=== PATIENT | male | born 2000 | race African-American/Black ===

== ENCOUNTER 2018-07-23 22:47 | Emergency (ER) | payer SELFPAY ==
[2018-07-23 22:52] VITALS: BP 143/72; PULSE 96; RESP 16; TEMP 37.7
--- NOTE | 2018-07-23 23:07 | W.ED.GENAD ---
Discharge Plan Disposition Patient Disposition: HOME Condition: Stable Discharge Details Chief Complaint: Orthopedic Clinical Impression: Coccyx contusion, Infected pilonidal cyst Primary Care Provider: Brady Amaya ED Provider: Marie Zamarripa Home Meds and New Rx's Prescriptions: New clindamycin HCl 150 mg capsule 450 mg PO TID 7 Days Qty: 63 RF: 0 ibuprofen 600 mg tablet 600 mg PO Q6H PRN (Reason: pain) Qty: 20 RF: 0 No Action melatonin 3 MG tablet 3 tab PO HS Qty: 90 RF: 3 mupirocin 22 GM ointment 1 monica Topical TID Qty: 22 RF: 0 Discharge Instructions Instructions: Pilonidal Cyst (GEN), Contusion in Adults (ED) Additional Instructions: You did not have a fracture of the your tailbone today based on x-ray results. You seem to be developing an infection in your tailbone region called a infected pilonidal cyst. This can develop into a pilonidal abscess but there was no obvious abscess noted on your exam today. Apply warm compresses to the affected area several times daily for 20 minutes at a time. Take the antibiotics until finished. Alternate Tylenol and Motrin as needed and directed for pain. Follow-up with your primary care doctor in 1 week for reevaluation and for referral to surgery if you need incision and drainage or excision of a pilonidal cyst or abscess. Surgery clinic number for Dr. Canada is [phone]. Return to the emergency department with any worsening or new concerning symptoms. Referrals: Payton Canada MD [ [facility]FF [facility]YSICIAN] - (Follow up with surgery clinic as directed if symptoms persist or worsen at [phone]) Discharge Data Discharge Physician: Marie Zamarripa Medical Decision Making MDM Narrative Medical decision making narrative: 17-year-old male who presents with coccyx pain after a fall onto his coccyx 6 days ago after his girlfriend fell onto him on the floor hitting his coccyx. He states the pain has been worsening. He denies known fever or cauda equina symptoms. He has not taken anything for pain. Temp 99.9. Blood pressure mildly elevated at 143/72. Heart rate 96. Patient appears nontoxic. Patient was able to easily ambulate around the room. Patient has what appears to be likely an infected pilonidal cyst. I am not seeing an obvious abscess. I performed a bedside ultrasound and did not see an obvious fluid collection consistent with an abscess. It is possible that patient has tenderness and erythema which may be ecchymosis from blunt injury, but considering the area of pain, and patient has a history of hidradenitis suprapatella with history of bilateral groin abscesses, I suspect this is more likely an infection. Will give a dose of Motrin and send for a coccyx x-ray. 0030 --x-ray negative for fracture. Patient feels slightly better. I discussed with patient that there does not appear to be an acute indication for incision and drainage at this time as there is no obvious abscess upon my examination. I did explain that this can change, and would require evaluation by a primary care doctor or surgery for incision and drainage and possibly excision. He was instructed to use warm compresses several times daily. Will give a dose of clindamycin here and prescription for home. Patient instructed to return immediately to the emergency department with any concerning symptoms. HPI - General Adult General Mode of arrival: ambulatory. Date/Time Provider Initiated Documentation: 07/23/18 23:07. Limitations to Documentation: no limitations. Information obtained by: patient. HPI Narrative: Patient is a 17-year-old male presents with tailbone pain after fall onto his tailbone 6 days ago. Patient states he has been applying ice with some relief. He has not taken any medication for pain. Patient states he came to the ED tonight because his girlfriend's mother stated that he could have internal bleeding. Patient denies any known fever, chest pain, shortness of breath, abdominal pain, dizziness, urinary symptoms, urinary or fecal incontinence, saddle anesthesia, leg weakness or numbness. He states he has been eating and drinking normally. Related Data Previous Rx's Medication Instructions Recorded clindamycin HCl 450 mg PO TID 7 Days #63 cap 07/24/18 ibuprofen 600 mg PO Q6H PRN #20 tab 07/24/18 Allergies Allergy/AdvReac Type Severity Reaction Status Date / Time lactose AdvReac Cramping Unverified 04/18/18 20:37 General Stated Complaint: Orthopedic TIRSO: 4 Review of Systems Review of Systems All systems reviewed & are unremarkable except as noted in HPI and below Constitutional Denies chills, Denies excessive sweating, Denies fatigue, Denies fever(s), Denies weakness and Denies weight loss Eyes Patient Reports system reviewed and no additional complaints, except as docu and Denies blurry vision ENT Denies vertigo, Denies dizziness, Denies otalgia, Denies nasal congestion, Denies sore throat and Denies throat swelling Cardiovascular Denies chest pain, Denies syncope, Denies rapid heart rate and Denies dyspnea Respiratory Denies dyspnea Gastrointestinal Denies abdominal pain, Denies diarrhea and Denies vomiting Genitourinary Denies hematuria, Denies dysuria and Denies flank pain Musculoskeletal Reports back pain (coccyx), Denies joint swelling and Denies numbness Integumentary/Breasts Denies lesions and Denies rash Neurologic Denies behavioral changes, Denies confusion, Denies vertigo, Denies dizziness, Denies syncope, Denies numbness and Denies weakness Psychiatric Denies behavioral changes, Denies confusion and Denies depression Endocrine Denies excessive sweating and Denies fatigue Hematologic/Lymphatic Denies easy bruising and Denies lymphadenopathy Allergic/Immunologic Denies throat swelling PFSH Family History Mother Family history unknown Father Family history unknown Medical History Hidradenitis suppurativa Insomnia Smoker Social History Smoking/Tobacco Use Status: Current every day Surgical History Circumcision Incision & Drainage, Abscess or Hematoma Exam Const General: cooperative and healthy appearing Orientation: alert and awake [facility] Head: normal to inspection Ears: hearing grossly normal bilaterally, external ears normal and TM's normal bilaterally General nose exam: external nose normal Face and sinus: normal facial exam Mouth: oral mucosae normal Eyes General: appearance normal, both eyes and all related structures Eyelids: eyelids normal EOM: EOM intact bilaterally Neck Neck: normal visual inspection Lymphatic: no lymphadenopathy noted Chest Chest: normal inspection of the chest Resp Effort & Inspection: normal respiratory effort and able to speak in complete sentences Auscultation: clear to auscultation bilaterally Cardio Rate: regular rate Rhythm: regular rhythm GI Inspection: normal to inspection Palpation: soft, not firm, no guarding, no hepatosplenomegaly, no masses and nontender Auscultation: normal bowel sounds Back/Spine/Pelvis Pelvis: other (There is no drainage or bleeding. There is no ecchymosis or step-off, lacerations or abrasions) Sacrum: other Coccyx: other (There is no drainage or bleeding. There is no ecchymosis or step-off, lacerations or abrasions) Back/spine/pelvis image: 1. There is an approximate 4 x 4 centimeter area of mild erythema, edema and tenderness palpation. There is no discrete abscess, induration or fluctuance noted. Skin General skin exam: no rashes or lesions noted Neuro General: alert and awake Cognition: normal cognition Speech: speech normal Gait: normal gait Motor: muscle tone normal throughout and strength 5/5 throughout Sensory Exam: no sensory deficits noted DTR's: Rt Patellar: 1+, Lt Patellar: 1+, Rt Ankle: 1+ and Lt Ankle: 1+ Extrem General: normal to inspection, full ROM and normal capillary refill Psych Appearance: grossly normal Mental Status: mental status grossly normal Speech and Movement: speech and movement normal Affect: normal affect Thought Process: normal Course Vital Signs Temperature 99.9 F H 07/23/18 22:52 Pulse 96 H 07/23/18 22:52 Respiratory Rate 16 07/23/18 22:52 Blood Pressure 143/72 H 07/23/18 22:52 Temperature 99.9 F H 07/23/18 22:52 Pulse 96 H 07/23/18 22:52 Respiratory Rate 16 07/23/18 22:52 Blood Pressure 143/72 H 07/23/18 22:52
[2018-07-23] MEDS: Ibuprofen 600 MG TAB PO (23:26)
--- NOTE | 2018-07-23 23:45 | DI.RAD_ITS ---
SYMPTOM/DIAGNOSIS: S/P FALL ONTO COCCYX, R/O FRACTURE SACRUM AND COCCYX: No acute fracture is visible. Distal sacral dysraphism is noted. SI joints, pubic symphysis and visualized portions of the hip joints appear intact. IMPRESSION: No acute abnormality.
--- NOTE | 2018-07-23 23:55 | DI.VRAD_ITS ---
EXAM: XR Sacrum and Coccyx, 2 or more Views CLINICAL HISTORY: 17 years old, male; Injury or trauma; Fall; Initial encounter; Blunt trauma (contusions or hematomas); Injury date: 07/18/18; Injury details: Fall and tailbone pain TECHNIQUE: Frontal and lateral views of the sacrum and coccyx. COMPARISON: No relevant prior studies available. FINDINGS: Sacrum/coccyx: Distal sacral dysraphism. No convincing evidence of acute fracture. Acute coccygeal angle typically a normal variant. Vertebrae: Visualized lumbar vertebrae are unremarkable. Soft tissues: Unremarkable. IMPRESSION: No acute findings. Dictated and Authenticated by: Petros Glass MD. Ordering:KIP ROBLERO MD
--- NOTE | 2018-07-23 23:58 | ED.GENADUL_ITS ---
Discharge Plan Disposition Patient Disposition: HOME Condition: Stable Discharge Details Chief Complaint: Orthopedic Clinical Impression: Coccyx contusion, Infected pilonidal cyst Primary Care Provider: Brady Amaya ED Provider: Marie Zamarripa Home Meds and New Rx's Prescriptions: New clindamycin HCl 150 mg capsule 450 mg PO TID 7 Days Qty: 63 RF: 0 ibuprofen 600 mg tablet 600 mg PO Q6H PRN (Reason: pain) Qty: 20 RF: 0 No Action melatonin 3 MG tablet 3 tab PO HS Qty: 90 RF: 3 mupirocin 22 GM ointment 1 monica Topical TID Qty: 22 RF: 0 Discharge Instructions Instructions: Pilonidal Cyst (GEN), Contusion in Adults (ED) Additional Instructions: You did not have a fracture of the your tailbone today based on x-ray results. You seem to be developing an infection in your tailbone region called a infected pilonidal cyst. This can develop into a pilonidal abscess but there was no obvious abscess noted on your exam today. Apply warm compresses to the affected area several times daily for 20 minutes at a time. Take the antibiotics until finished. Alternate Tylenol and Motrin as needed and directed for pain. Follow-up with your primary care doctor in 1 week for reevaluation and for referral to surgery if you need incision and drainage or excision of a pilonidal cyst or abscess. Surgery clinic number for Dr. Canada is [phone]. Return to the emergency department with any worsening or new concerning symptoms. Referrals: Payton Canada MD [ [facility] ST[facility]FF PHYSICIAN] - (Follow up with surgery clinic as directed if symptoms persist or worsen at [phone]) Discharge Data Discharge Physician: Marie Zamarripa Medical Decision Making MDM Narrative Medical decision making narrative: 17-year-old male who presents with coccyx pain after a fall onto his coccyx 6 days ago after his girlfriend fell onto him on the floor hitting his coccyx. He states the pain has been worsening. He denies known fever or cauda equina symptoms. He has not taken anything for pain. Temp 99.9. Blood pressure mildly elevated at 143/72. Heart rate 96. Patient appears nontoxic. Patient was able to easily ambulate around the room. Patient has what appears to be likely an infected pilonidal cyst. I am not seeing an obvious abscess. I performed a bedside ultrasound and did not see an obvious fluid collection consistent with an abscess. It is possible that patient has tenderness and erythema which may be ecchymosis from blunt injury, but considering the area of pain, and patient has a history of hidradenitis suprapatella with history of bilateral groin abscesses, I suspect this is more likely an infection. Will give a dose of Motrin and send for a coccyx x-ray. 0030 --x-ray negative for fracture. Patient feels slightly better. I discussed with patient that there does not appear to be an acute indication for incision and drainage at this time as there is no obvious abscess upon my examination. I did explain that this can change, and would require evaluation by a primary care doctor or surgery for incision and drainage and possibly excision. He was instructed to use warm compresses several times daily. Will give a dose of clindamycin here and prescription for home. Patient instructed to return immediately to the emergency department with any concerning symptoms. HPI - General Adult General Mode of arrival: ambulatory . Date/Time Provider Initiated Documentation: 07/23/18 23:07 . Limitations to Documentation: no limitations . Information obtained by: patient . HPI Narrative: Patient is a 17-year-old male presents with tailbone pain after fall onto his tailbone 6 days ago. Patient states he has been applying ice with some relief. He has not taken any medication for pain. Patient states he came to the ED tonight because his girlfriend's mother stated that he could have internal bleeding. Patient denies any known fever, chest pain, shortness of breath, abdominal pain, dizziness, urinary symptoms, urinary or fecal incontinence, saddle anesthesia, leg weakness or numbness. He states he has been eating and drinking normally. Related Data Previous Rx's Medication Instructions Recorded clindamycin HCl 450 mg PO TID 7 Days #63 cap 07/24/18 ibuprofen 600 mg PO Q6H PRN #20 tab 07/24/18 Allergies Allergy/AdvReac Type Severity Reaction Status Date / Time lactose AdvReac Cramping Unverified 04/18/18 20:37 General Stated Complaint: Orthopedic TIRSO: 4 Review of Systems Review of Systems All systems reviewed & are unremarkable except as noted in HPI and below Constitutional Denies chills, Denies excessive sweating, Denies fatigue, Denies fever(s), Denies weakness and Denies weight loss Eyes Patient Reports system reviewed and no additional complaints, except as docu and Denies blurry vision ENT Denies vertigo, Denies dizziness, Denies otalgia, Denies nasal congestion, Denies sore throat and Denies throat swelling Cardiovascular Denies chest pain, Denies syncope, Denies rapid heart rate and Denies dyspnea Respiratory Denies dyspnea Gastrointestinal Denies abdominal pain, Denies diarrhea and Denies vomiting Genitourinary Denies hematuria, Denies dysuria and Denies flank pain Musculoskeletal Reports back pain (coccyx), Denies joint swelling and Denies numbness Integumentary/Breasts Denies lesions and Denies rash Neurologic Denies behavioral changes, Denies confusion, Denies vertigo, Denies dizziness, Denies syncope, Denies numbness and Denies weakness Psychiatric Denies behavioral changes, Denies confusion and Denies depression Endocrine Denies excessive sweating and Denies fatigue Hematologic/Lymphatic Denies easy bruising and Denies lymphadenopathy Allergic/Immunologic Denies throat swelling PFSH Family History Mother Family history unknown Father Family history unknown Medical History Hidradenitis suppurativa Insomnia Smoker Social History Smoking/Tobacco Use Status: Current every day Surgical History Circumcision Incision & Drainage, Abscess or Hematoma Exam Const General: cooperative and healthy appearing Orientation: alert and awake [facility] Head: normal to inspection Ears: hearing grossly normal bilaterally, external ears normal and TM's normal bilaterally General nose exam: external nose normal Face and sinus: normal facial exam Mouth: oral mucosae normal Eyes General: appearance normal, both eyes and all related structures Eyelids: eyelids normal EOM: EOM intact bilaterally Neck Neck: normal visual inspection Lymphatic: no lymphadenopathy noted Chest Chest: normal inspection of the chest Resp Effort & Inspection: normal respiratory effort and able to speak in complete sentences Auscultation: clear to auscultation bilaterally Cardio Rate: regular rate Rhythm: regular rhythm GI Inspection: normal to inspection Palpation: soft, not firm, no guarding, no hepatosplenomegaly, no masses and nontender Auscultation: normal bowel sounds Back/Spine/Pelvis Pelvis: other (There is no drainage or bleeding. There is no ecchymosis or step -off, lacerations or abrasions) Sacrum: other Coccyx: other (There is no drainage or bleeding. There is no ecchymosis or step -off, lacerations or abrasions) Back/spine/pelvis image: 2 1. There is an approximate 4 x 4 centimeter area of mild erythema, edema and tenderness palpation. There is no discrete abscess, induration or fluctuance noted. Skin General skin exam: no rashes or lesions noted Neuro General: alert and awake Cognition: normal cognition Speech: speech normal Gait: normal gait Motor: muscle tone normal throughout and strength 5/5 throughout Sensory Exam: no sensory deficits noted DTR's: Rt Patellar: 1+, Lt Patellar: 1+, Rt Ankle: 1+ and Lt Ankle: 1+ Extrem General: normal to inspection, full ROM and normal capillary refill Psych Appearance: grossly normal Mental Status: mental status grossly normal Speech and Movement: speech and movement normal Affect: normal affect Thought Process: normal Course Vital Signs Temperature 99.9 F H 07/23/18 22:52 Pulse 96 H 07/23/18 22:52 Respiratory Rate 16 07/23/18 22:52 Blood Pressure 143/72 H 07/23/18 22:52 Temperature 99.9 F H 07/23/18 22:52 Pulse 96 H 07/23/18 22:52 Respiratory Rate 16 07/23/18 22:52 Blood Pressure 143/72 H 07/23/18 22:52
[2018-07-24] MEDS: Clindamycin 150 MG CAP 450 MG PO (00:40)
== END 2018-07-24 00:42 | disposition home or self-care (01) ==
LOC: ER 07-24 00:43
PROVIDERS: Emergency Provider Physician Assistant; PCP Pediatrics
DX: S30.0XXA Contusion of lower back and pelvis, initial encounter (principal); W18.30XA Fall on same level, unspecified, initial encounter; W50.0XXA Accidental hit or strike by another person, initial encounter; L05.91 Pilonidal cyst without abscess
CPT/HCPCS: 99283; 72220